=== PATIENT | male | born 1955 | race Caucasian/White ===

== ENCOUNTER 2019-05-29 09:15 | Inpatient (IN) | payer BC, OTHER ==
[~2019-05-29] VITALS: Ht 170.2 cm; Wt 77.7 kg
[2019-05-29] MEDS ORDERED: SODIUM CHLORIDE 0.9% 1,000 ML IV ONE (10:28)
[2019-05-29] MEDS ORDERED: DEXTROSE 50% WATER 50ML SYRINGE IV ONE (10:30)
[2019-05-29] MEDS ORDERED: GLUCAGON,HUMAN RECOMBINANT 1MG/VIAL IV ONE (10:45)
[2019-05-29 10:52] LABS: CHLORIDE 110 mEq/L (98-107)
[2019-05-29 10:53] LABS: BASOPHILS % 0.2 % (0.0-2.0); EOSINOPHILS % 0.3 % (0.0-5.0); HEMATOCRIT. 40.3 % (42.0-52.0); HEMOGLOBIN. 13.4 g/dL (14.0-18.0); LYMPHOCYTES % 10.6 % (20.0-50.0); MEAN CORPUSCULAR VOLUME 84.4 fL (80.0-94.0); MEAN PLATELET VOLUME 9.9 fl (7.4-10.4); MONOCYTES % 3.6 % (2.0-8.0); NEUTROPHILS % 85.3 % (40.0-76.0); PLATELET 94 x1000/uL (130-400); RED BLOOD CELL COUNT 4.77 mill/uL (4.7-6.1); RED CELL DISTRIBUTION WIDTH 15.7 % (11.6-14.6)
[2019-05-29] MEDS ORDERED: ONDANSETRON HCL 4MG/2ML INJ IV ONE (11:00)
[2019-05-29] MEDS: PANTOPRAZOLE SODIUM 40 MG/VIAL IV SCH ×2 (11:58→21:00)
[2019-05-29 12:05] LABS: INR 1.1; PARTIAL THROMBOPLASTIN TIME 26.1 sec (23.4-31.0); PROTHROMBIN TIME 10.8 sec (9.6-11.0)
[2019-05-29] MEDS ORDERED: ONDANSETRON HCL 4MG/2ML INJ IV PRN (13:30)
[2019-05-29] MEDS ORDERED: DEXT 5%/0.45% NACL 1000ML 1,000 ML IV SCH (13:45)
[2019-05-29 13:55] VITALS: BP 166/88
[2019-05-29 14:00] VITALS: BP 166/88
[2019-05-29] MEDS ORDERED: INSU100V36 SQ (14:31)
[2019-05-29] MEDS ORDERED: LEVO50TA8 MT (14:31)
[2019-05-29] MEDS ORDERED: GABA-533 PO (14:31)
[2019-05-29] MEDS ORDERED: ASPI-1393 MT (14:31)
[2019-05-29] MEDS ORDERED: LORA1TAB MT (14:31)
[2019-05-29] MEDS ORDERED: PRAV40TA58 MT (14:31)
[2019-05-29] MEDS ORDERED: DULA0.75 SQ (14:31)
[2019-05-29] MEDS ORDERED: NEBI5TAB3 PO (14:31)
[2019-05-29] MEDS ORDERED: AMLO5TAB88 PO (14:31)
[2019-05-29] MEDS ORDERED: OMEP20CA5 MT (14:31)
[2019-05-29] MEDS ORDERED: OXYM30SP26 BOTHNSTRLS (14:31)
[2019-05-29] MEDS ORDERED: ASCO100T12 MT (14:33)
[2019-05-29] MEDS ORDERED: VITA1CAP19 PO (14:33)
[2019-05-29] MEDS ORDERED: CHOL200010 MT (14:33)
[2019-05-29] MEDS ORDERED: MULT-1234 MT (14:33)
[2019-05-29] MEDS: OXYMETAZOLINE HCL NASAL SPRAY 15ML BOTHNSTRLS SCH ×2 (15:53→21:00)
[2019-05-29 16:00] VITALS: BP 158/91
[2019-05-29] MEDS ORDERED: LORAZEPAM 1MG TABLET PO SCH (17:00)
[2019-05-29] MEDS ORDERED: AMPICILLIN SOD/SULBACTAM NA 3 G in SODIUM CHLORIDE 0.9% 100 ML IV NR (17:00)
[2019-05-29] MEDS ORDERED: OXYMETAZOLINE HCL NASAL SPRAY 15ML BOTHNSTRLS SCH (17:00)
[2019-05-29] MEDS ORDERED: GENTAMICIN SULFATE 60 MG in SODIUM CHLORIDE 0.9% 50 ML IV SCH (17:00)
[2019-05-29] MEDS ORDERED: MIDAZOLAM HCL 5 MG/5 ML VIAL ONE (18:57)
[2019-05-29] MEDS ORDERED: SIMETHICONE 40 MG/0.6 ML 30ML ONE (18:57)
[2019-05-29] MEDS ORDERED: FENTANYL CITRATE/PF 50MCG/ML 2ML VIAL ONE (18:58)
[2019-05-29] MEDS ORDERED: FENTANYL CITRATE/PF 50MCG/ML 2ML VIAL IV PRN (19:10)
[2019-05-29] MEDS ORDERED: MIDAZOLAM HCL 5 MG/5 ML VIAL IV PRN (19:11)
[2019-05-29] MEDS ORDERED: DIPHENHYDRAMINE 50MG/ML VIAL IV PRN (19:21)
[2019-05-29] MEDS ORDERED: DIPHENHYDRAMINE 50MG/ML VIAL ONE ×2 (19:24→19:51)
[2019-05-29 20:00] VITALS: BP 126/98
[2019-05-30] MEDS ORDERED: LEVOTHYROXINE SODIUM 50MCG TABLET PO SCH (07:20)
[2019-05-30] MEDS ORDERED: ASPIRIN 81MG EC TABLET PO SCH (09:00)
[2019-05-30] MEDS ORDERED: GABAPENTIN 400MG CAPSULE PO SCH (09:00)
[2019-05-30] MEDS ORDERED: AMLODIPINE 5MG TABLET PO SCH (09:00)
[2019-05-30] MEDS ORDERED: NEBIVOLOL HCL 5 MG TABLET PO SCH (09:00)
== END 2019-05-29 23:12 | disposition left against medical advice (07) | DRG 395 ==
LOC: ER 09:15 → 6WST 11:44 → ENRESERV 12:33
PROVIDERS: ADMIT Internal Medicine Critical Care Medicine; ATTEND Internal Medicine Critical Care Medicine
PROC: 0DB68ZX Excision of Stomach, Via Natural or Artificial Opening Endoscopic, Diagnostic (ICD-10-PCS; principal; 2019-05-29)
DX: T18.128A Food in esophagus causing other injury, initial encounter (principal); D64.9 Anemia, unspecified; D69.6 Thrombocytopenia, unspecified; E78.00 Pure hypercholesterolemia, unspecified; E11.9 Type 2 diabetes mellitus without complications; E78.5 Hyperlipidemia, unspecified; I10 Essential (primary) hypertension; I44.0 Atrioventricular block, first degree; I48.0 Paroxysmal atrial fibrillation; K29.70 Gastritis, unspecified, without bleeding; Z79.4 Long term (current) use of insulin; Z79.82 Long term (current) use of aspirin; Z82.3 Family history of stroke; Z82.49 Family history of ischemic heart disease and other diseases of the circulatory system; Z87.891 Personal history of nicotine dependence; Z93.1 Gastrostomy status; Z95.2 Presence of prosthetic heart valve; Z96.659 Presence of unspecified artificial knee joint; X58.XXXA Exposure to other specified factors, initial encounter; Y93.89 Activity, other specified; Y92.89 Other specified places as the place of occurrence of the external cause; Y99.8 Other external cause status; K22.2 Esophageal obstruction
CPT/HCPCS: 36415; 71045; 82962; 88305; 88312; 88313; 96361; 96374; 96375; 99285; C9113; J0295; J1200; J1580; J1610; J2250; J2405; J3010; J7030; J7040; J7050

== ENCOUNTER → 2021-06-09 | Outpatient (CLI) | payer MEDICARE, BC ==
[~2021-06-09] MED LIST: AMLO5TAB88 PO; ASCO-339 MT; ASCO100T12 MT; ASPI-1497 MT; ASPI-1497 PO; BARIUM SULFATE 176 GM SUSP.RECON ONE; CHOL200010 MT; DULA0.75 SQ; EZ-HD SUSPENSION(BARIUM SULFATE 340GM) PO ONE; GABA-533 PO; HYDR25TA PO; INSU100C6 SQ; INSU100I22 SQ; INSU100V36 SQ; LEVO50TA8 MT; LEVO50TA8 PO; LORA-250 MT; LORA1TAB MT; METO25TA6 PO; MULT-1203 MT; MULT-1234 MT; MV-M1TAB19 PO; NEBI5TAB3 PO; OMEP20CA14 MT; OMEP20CA14 PO; OXYM30SP26 BOTHNSTRLS; PRAV40TA58 MT; PRAV40TA58 PO; VITA1CAP19 PO; VITA1CAP47 PO
== END | disposition home or self-care (01) ==
LOC: RAD 14:35
PROVIDERS: ATTEND Internal Medicine Critical Care Medicine
DX: K44.9 Diaphragmatic hernia without obstruction or gangrene (principal); R13.10 Dysphagia, unspecified
CPT/HCPCS: 74220

== ENCOUNTER 2021-11-11 05:38 | Inpatient (IN) | payer MEDICARE, BC ==
[~2021-11-11] VITALS: Ht 200.7 cm; Wt 78.0 kg
[~2021-11-11 05:38] MED LIST changes: -BARIUM SULFATE 176 GM SUSP.RECON ONE; +BUPIVACAINE HCL/PF 0.5% (5MG/ML) 30ML ONE; -EZ-HD SUSPENSION(BARIUM SULFATE 340GM) PO ONE; +SKIN ADHESIVE 0.7 GM EA TOP ONE
[2021-11-11] MEDS ORDERED: SODIUM CHLORIDE 0.9% 1,000 ML IV ONE (06:30)
[2021-11-11 06:45] LABS: CLARITY URINE CLEAR (CLEAR); COLOR URINE YELLOW (YELLOW); KETONES URINE NEGATIVE (NEGATIVE); LEUKOCYTE ESTERASE URINE NEGATIVE (NEGATIVE); NITRITE URINE NEGATIVE (NEGATIVE); OCCULT BLOOD URINE NEGATIVE (NEGATIVE); PH URINE 6.5 (4.5-8.0); PROTEIN URINE NEGATIVE (NEGATIVE); SPECIFIC GRAVITY URINE 1.015 (1.005-1.030); UROBILINOGEN URINE 0.2 E.U./dL (0.2-1.0)
[2021-11-11] MEDS ORDERED: APIX2.5T PO (07:24)
[2021-11-11] MEDS ORDERED: DEXAMETHASONE 4MG/ML 1ML VIAL ONE (07:40)
[2021-11-11] MEDS ORDERED: NEOSTIGMINE METHYLSULFATE 1MG/ML 10 ML VIAL ONE (07:40)
[2021-11-11] MEDS ORDERED: PROPOFOL 200MG/20ML VIAL IV ONE (07:40)
[2021-11-11] MEDS ORDERED: GLYCOPYRROLATE 0.2 MG/ML 2ML VIAL ONE ×2 (07:40→07:41)
[2021-11-11] MEDS ORDERED: LIDOCAINE HCL 1% 20ML VIAL (Pyxis) INJ ONE (07:40)
[2021-11-11] MEDS ORDERED: ROCURONIUM BROMIDE 10MG/ML VIAL 5ML IV ONE (07:40)
[2021-11-11] MEDS ORDERED: DULA1.5P SQ (07:40)
[2021-11-11] MEDS ORDERED: ONDANSETRON HCL 4MG/2ML INJ ONE (07:40)
[2021-11-11] MEDS ORDERED: FENTANYL CITRATE/PF 50MCG/ML 2ML VIAL ONE (07:41)
[2021-11-11] MEDS ORDERED: MIDAZOLAM HCL 2 MG/2 ML VIAL ONE (07:41)
[2021-11-11] MEDS ORDERED: LABETALOL 5MG/ML SYR 20 MG/4 ML SYRINGE IV PRN (08:30)
[2021-11-11] MEDS ORDERED: ONDANSETRON HCL 4MG/2ML INJ IV PRN (08:30)
[2021-11-11] MEDS ORDERED: MEPERIDINE HCL/PF 25MG/ML CPJ IV PRN (08:30)
[2021-11-11] MEDS: HYDROMORPHONE HCL/PF 2MG/ML CPJ IV PRN ×2 (09:56→10:41)
[2021-11-11] MEDS ORDERED: IPRATROPIUM/ALBUTEROL 0.5-3(2.5)MG/3ML NEB HHN SCH (12:15)
[2021-11-11 12:32] LABS: BG BASE EXCESS 8.1 mmol/L (-2.0-2.0); BG CARBOXYHEMOGLOBIN 0.8 % (0.5-1.5); BG DEOXYHEMOGLOBIN 8.5 % (0.0-5.0); BG FRACTION INSPIRED OXYGEN 32; BG HCO3 ACT 36.5 mmol/L (22.0-26.0); BG METHEMOGLOBIN 0.2 % (0.0-1.5); BG OXYGEN SATURATION 91.4 % (92.0-98.5); BG OXYHEMOGLOBIN 90.5 % (94.0-97.0); BG PCO2 70.9 mmHg (35.0-45.0); BG PH 7.329 (7.350-7.450); BG PO2 66.1 mmHg (75.0-100.0); BG SAMPLE SITE RIGHT RADIAL; BG TOTAL HEMOGLOBIN 12.5 g/dL (12.0-18.0); BG VENT MODE NASAL CANNULA
[2021-11-11] MEDS: IPRATROPIUM/ALBUTEROL 0.5-3(2.5)MG/3ML NEB HHN SCH ×2 (14:10→20:47)
[2021-11-11] MEDS ORDERED: METHADONE HCL 10MG TABLET PO NR (15:00)
[2021-11-11 17:00] VITALS: BP 120/76
[2021-11-11 17:17] LABS: BG BASE EXCESS 2.9 mmol/L (-2.0-2.0); BG CARBOXYHEMOGLOBIN 0.8 % (0.5-1.5); BG DEOXYHEMOGLOBIN 6.4 % (0.0-5.0); BG FRACTION INSPIRED OXYGEN 36; BG HCO3 ACT 29.5 mmol/L (22.0-26.0); BG METHEMOGLOBIN 0.3 % (0.0-1.5); BG OXYGEN SATURATION 93.5 % (92.0-98.5); BG OXYHEMOGLOBIN 92.5 % (94.0-97.0); BG PCO2 54.5 mmHg (35.0-45.0); BG PH 7.351 (7.350-7.450); BG PO2 71.6 mmHg (75.0-100.0); BG SAMPLE SITE RIGHT RADIAL; BG TOTAL HEMOGLOBIN 12.2 g/dL (12.0-18.0); BG VENT MODE NASAL CANNULA
[2021-11-11] MEDS: PIPERACILLIN/TAZOBACTAM 3.375 G in DEXTROSE 5% WATER 50 ML IV SCH (19:28)
[2021-11-11] MEDS: GABAPENTIN 400MG CAPSULE PO SCH (19:28)
[2021-11-11 20:00] VITALS: BP 104/55
[2021-11-11] MEDS: METOPROLOL TARTRATE 50MG TABLET PO SCH (21:00)
[2021-11-11] MEDS: AMLODIPINE 5MG TABLET PO SCH (21:00)
[2021-11-11] MEDS ORDERED: ATORVASTATIN CALCIUM 40MG TABLET PO SCH (21:00)
[2021-11-11 21:47] VITALS: BP 104/55
[2021-11-11] MEDS ORDERED: DEXTROSE 50% WATER 50ML SYRINGE IV PRN (22:15)
[2021-11-11] MEDS: INSULIN LISPRO 100 UNITS/ML SUBCUT SCH (22:26)
[2021-11-11] MEDS: BLOOD SUGAR DIAGNOSTIC STRIP TEST SCH (22:30)
[2021-11-11] MEDS: LORAZEPAM 2MG/ML CPJ IV PRN (22:51)
[2021-11-12] VITALS: BP 100/60
[2021-11-12] MEDS: PIPERACILLIN/TAZOBACTAM 3.375 G in DEXTROSE 5% WATER 50 ML IV SCH ×3 (00:31→13:08)
[2021-11-12] MEDS: ACETYLCYSTEINE 100MG/ML 10% VIAL 4ML INH SCH ×3 (00:35→16:10)
[2021-11-12] MEDS: IPRATROPIUM/ALBUTEROL 0.5-3(2.5)MG/3ML NEB HHN SCH ×5 (00:39→16:00)
[2021-11-12 04:00] VITALS: BP 111/61
[2021-11-12] MEDS: BLOOD SUGAR DIAGNOSTIC STRIP TEST SCH ×3 (05:47→16:45)
[2021-11-12] MEDS: INSULIN LISPRO 100 UNITS/ML SUBCUT SCH ×2 (06:12→13:09)
[2021-11-12] MEDS ORDERED: LEVOTHYROXINE SODIUM 50MCG TABLET PO SCH (06:40)
[2021-11-12 07:32] LABS: BASOPHILS % 0.1 % (0.0-2.0); HEMATOCRIT. 33.4 % (42.0-52.0); HEMOGLOBIN. 10.7 g/dL (14.0-18.0); LYMPHOCYTES % 7.8 % (20.0-50.0); MEAN CORPUSCULAR HEMOGLOBIN 24.7 pg (28.0-32.0); MEAN CORPUSCULAR VOLUME 77.2 fL (80.0-94.0); MEAN PLATELET VOLUME 8.7 fl (7.4-10.4); MONOCYTES % 4.4 % (2.0-8.0); NEUTROPHILS % 87.7 % (40.0-76.0); PLATELET 133 x1000/uL (130-400); RED BLOOD CELL COUNT 4.33 mill/uL (4.7-6.1); RED CELL DISTRIBUTION WIDTH 17.7 % (11.6-14.6)
[2021-11-12 08:00] VITALS: BP 113/61
[2021-11-12] MEDS: AMLODIPINE 5MG TABLET PO SCH (08:12)
[2021-11-12] MEDS: METOPROLOL TARTRATE 50MG TABLET PO SCH (08:12)
[2021-11-12] MEDS: GABAPENTIN 400MG CAPSULE PO SCH ×2 (08:12→16:45)
[2021-11-12] MEDS ORDERED: SODIUM CHLORIDE 0.9% 500 ML IV ONE (08:30)
[2021-11-12] MEDS: LORAZEPAM 2MG/ML CPJ IV PRN (09:24)
[2021-11-12] MEDS ORDERED: NALOXONE HCL 0.4MG/ML VIAL IV PRN (09:45)
[2021-11-12] MEDS ORDERED: MORPHINE SULFATE 2 MG/ML CPJ (NOT FOR IM USE) IV PRN (09:45)
[2021-11-12 10:14] LABS: BG BASE EXCESS 3.2 mmol/L (-2.0-2.0); BG CARBOXYHEMOGLOBIN 0.5 % (0.5-1.5); BG DEOXYHEMOGLOBIN 11.3 % (0.0-5.0); BG FRACTION INSPIRED OXYGEN 21; BG HCO3 ACT 30.2 mmol/L (22.0-26.0); BG METHEMOGLOBIN 0.3 % (0.0-1.5); BG OXYGEN SATURATION 88.6 % (92.0-98.5); BG OXYHEMOGLOBIN 87.9 % (94.0-97.0); BG PH 7.334 (7.350-7.450); BG PO2 58.1 mmHg (75.0-100.0); BG SAMPLE SITE RIGHT RADIAL; BG TOTAL HEMOGLOBIN 11.1 g/dL (12.0-18.0); BG VENT MODE ROOM AIR
[2021-11-12 12:00] VITALS: BP 114/54
[2021-11-12 16:00] VITALS: BP 128/78
[2021-11-12] MEDS ORDERED: METHADONE PO SCH (16:00)
[2021-11-12] MEDS ORDERED: APIXABAN 2.5 MG TABLET PO SCH (17:00)
[2021-11-12 17:14] VITALS: BP 125/65
== END 2021-11-12 18:19 | disposition home or self-care (01) | DRG 353 ==
LOC: OR 05:38 → 7EST 05:39
PROVIDERS: ADMIT Internal Medicine Critical Care Medicine; ATTEND Internal Medicine Critical Care Medicine
PROC: 0WUF4JZ Supplement Abdominal Wall with Synthetic Substitute, Percutaneous Endoscopic Approach (ICD-10-PCS; principal; 2021-11-11)
DX: K43.9 Ventral hernia without obstruction or gangrene (principal); J69.0 Pneumonitis due to inhalation of food and vomit; J96.02 Acute respiratory failure with hypercapnia; E87.2 Acidosis; N17.9 Acute kidney failure, unspecified; I13.10 Hypertensive heart and chronic kidney disease without heart failure, with stage 1 through stage 4 chronic kidney disease, or unspecified chronic kidney disease; I44.7 Left bundle-branch block, unspecified; E11.22 Type 2 diabetes mellitus with diabetic chronic kidney disease; E78.5 Hyperlipidemia, unspecified; I25.10 Atherosclerotic heart disease of native coronary artery without angina pectoris; J44.9 Chronic obstructive pulmonary disease, unspecified; K22.2 Esophageal obstruction; N18.9 Chronic kidney disease, unspecified; Z79.01 Long term (current) use of anticoagulants; Z79.4 Long term (current) use of insulin; Z79.82 Long term (current) use of aspirin; Z95.0 Presence of cardiac pacemaker; Z95.2 Presence of prosthetic heart valve; Z79.899 Other long term (current) drug therapy
CPT/HCPCS: 36415; 36600; 71045; 80048; 81003; 82375; 82805; 82962; 83036; 85025; 93005; 94640; C1781; J1100; J1170; J1815; J2060; J2175; J2250; J2270; J2405; J2543; J2704; J2710; J3010; J3490; J7060; J7608

== ENCOUNTER 2022-04-26 16:35 | Emergency (ER) | payer MEDICARE, BC ==
[~2022-04-26] VITALS: Ht 170.2 cm; Wt 71.0 kg
[~2022-04-26 16:35] MED LIST changes: +APIX2.5T PO; -ASCO-339 MT; -ASPI-1497 MT; -BUPIVACAINE HCL/PF 0.5% (5MG/ML) 30ML ONE; -DULA0.75 SQ; +DULA1.5P SQ; -INSU100V36 SQ; -LEVO50TA8 MT; -LORA1TAB MT; -MULT-1203 MT; -MV-M1TAB19 PO; -NEBI5TAB3 PO; -OMEP20CA14 MT; -OXYM30SP26 BOTHNSTRLS; -PRAV40TA58 MT; -SKIN ADHESIVE 0.7 GM EA TOP ONE; -VITA1CAP19 PO
[2022-04-26] MEDS ORDERED: ONDANSETRON HCL 4MG/2ML INJ IV STA (17:28)
[2022-04-26] MEDS ORDERED: VISCOUS LIDOCAINE 2% 15 ML UDC PO ONE (17:30)
[2022-04-26] MEDS ORDERED: GLUCAGON,HUMAN RECOMBINANT 1MG/VIAL IV ONE ×2 (17:30→18:15)
[2022-04-26] MEDS ORDERED: MAGNESIUM/ALUMINUM HYDROXIDE/SIMETHICONE 30ML UDC PO ONE (17:30)
[2022-04-26] MEDS ORDERED: MAG355OR21 MT (18:56)
[2022-04-26 19:00] VITALS: BP 163/87
== END 2022-04-26 19:09 | disposition home or self-care (01) ==
LOC: ER 16:40
DX: T18.108A Unspecified foreign body in esophagus causing other injury, initial encounter (principal); E11.9 Type 2 diabetes mellitus without complications; I10 Essential (primary) hypertension; Z79.899 Other long term (current) drug therapy; Z13.9 Encounter for screening, unspecified; X58.XXXA Exposure to other specified factors, initial encounter; Y93.89 Activity, other specified; Y92.89 Other specified places as the place of occurrence of the external cause; Y99.8 Other external cause status
CPT/HCPCS: 71045; 82962; 93005; 96374; 96375; 99284; J1610; J2405

== ENCOUNTER → 2024-03-20 | Outpatient (CLI) | payer MEDICARE, BC ==
[~2024-03-20] MED LIST changes: -GABA-533 PO; +GABA-534 PO; +MAG355OR21 MT
== END | disposition home or self-care (01) ==
LOC: NM 08:32
PROVIDERS: ATTEND Internal Medicine Critical Care Medicine
DX: D36.7 Benign neoplasm of other specified sites (principal); E83.52 Hypercalcemia
CPT/HCPCS: 78070; A9500